=== PATIENT | female | born 1960 | race Caucasian/White ===

== ENCOUNTER 2018-10-10 18:00 | Emergency (ER) | payer BC, OTHER ==
--- NOTE | 2018-10-10 19:22 | CT ---
CT CERVICAL SPINE NONCONTRAST: 10/10/17 HISTORY: Fall. Neck injury. FINDINGS: Vertebral body height and AP alignment are maintained. Rightward convexed curvature. Prominent osteop hytosis throughout the vertebral bodies and facets, most pronounced posteriorly on the left at the C2 -3 level. Multilevel foraminal stenosis. No acute fracture or dislocation. Heterogeneity of the thyro id gland with a nonspecific nodule in the right thyroid lobe. IMPRESSION: Prominent degenerative changes of the cervical spine. No acute osseous abnormalities are demonstrated . POS: [facility]
--- NOTE | 2018-10-10 19:25 | RAD ---
AP PELVIS ONE VIEW: 10/10/18 HISTORY: Fall. Pelvic injury. FINDINGS: Sacral ala and pelvic rings are intact. Mild degenerative changes of the sacroiliac joints and each h ip. No acute fracture or dislocation are apparent. IMPRESSION: No acute osseous abnormalities are demonstrated. POS: [facility]
[2018-10-10] MEDS ORDERED: Acetaminophen 500 MG TAB ONE (19:37)
== END 2018-10-10 19:56 | disposition home or self-care (01) ==
LOC: ERS 18:00
DX: T14.8XXA Other injury of unspecified body region, initial encounter (principal); W19.XXXA Unspecified fall, initial encounter
CPT/HCPCS: 72125; 72170